=== PATIENT | female | born 1965 | race Caucasian/White ===

== ENCOUNTER 2020-10-08 20:03 | Emergency (ER) | payer BC ==
[2020-10-08] MEDS ORDERED: predniSONE 20 MG Tab PO ONE (20:21)
[2020-10-08] MEDS ORDERED: Famotidine 20 MG Tab PO ONE (20:22)
--- NOTE | 2020-10-08 20:27 | EDM.PDOC ---
ED HPI GENERAL MEDICAL PROBLEM - General Chief Complaint: Allergic Reaction Stated Complaint: ALLERGIC REACTION Time Seen by Provider: 10/08/20 20:05 Source of Information: Reports: Patient History Limitations: Reports: No Limitations - History of Present Illness INITIAL COMMENTS - FREE TEXT/NARRATIVE: The patient presents with an allergic reaction. The patient just ate some s hrimp and about an hour later had tingling in her mouth, tongue, and lips and hives to her face. She did take benadryl and that did help. She is not allergic to any foods as far as she knows. She has some allergies to medications. She has no trouble breathing. Onset: Sudden Duration: Hour(s): Location: Reports: Face Severity: Moderate Improves with: Reports: None Worsens with: Reports: None Associated Symptoms: Reports: No Other Symptoms - Related Data Allergies Allergy/AdvReac Type Severity Reaction Status Date / Time ephedrine [From Tedral] Allergy Rash Verified 10/08/20 20:13 phenobarbital [From Tedral] Allergy Rash Verified 10/08/20 20:13 theophylline [From Tedral] Allergy Rash Verified 10/08/20 20:13 Home Meds: Home Meds Albuterol [Ventolin 2 MG/5 ML] 10/08/20 [History] Montelukast [Singulair] 10 mg PO DAILY 10/08/20 [History] predniSONE [Prednisone] 40 mg PO DAILY #10 tablet 10/08/20 [Rx] Past Medical History Respiratory History: Reports: Asthma ED ROS ALLERGIC REACTION - Review of Systems Review Of Systems: See Below Constitutional: Reports: No Symptoms HEENT: Reports: Other (mouth and lip tingling) Respiratory: Reports: No Symptoms Cardiovascular: Reports: No Symptoms Endocrine: Reports: No Symptoms GI/Abdominal: Reports: No Symptoms : Reports: No Symptoms ED EXAM GENERAL NO PERIP PULSE - Physical Exam Exam: See Below Exam Limited By: No Limitations General Appearance: Alert, No Apparent Distress Ears: Normal External Exam Nose: Normal Inspection Throat/Mouth: Normal Inspection Head: Atraumatic, Normocephalic Neck: Normal Inspection Respiratory/Chest: No Respiratory Distress, Lungs Clear, Normal Breath Sounds Cardiovascular: Regular Rate, Rhythm, No Edema, No Murmur GI/Abdominal: Soft, Non-Tender, No Organomegaly, No Mass Back Exam: Normal Inspection Extremities: Normal Inspection Course - Vital Signs Last Recorded V/S: Last Vital Signs Temp 98.1 F 10/08/20 20:10 Pulse 98 10/08/20 20:10 Resp 18 10/08/20 20:10 BP 119/64 10/08/20 20:10 Pulse Ox 99 10/08/20 20:10 - Orders/Labs/Meds Orders: Active Orders 24 hr Category Date Time Status Famotidine [Pepcid] Med 10/08/20 20:22 Once 20 mg PO ONETIME ONE predniSONE Med 10/08/20 20:21 Once 40 mg PO ONETIME ONE - Re-Assessments/Exams Free Text/Narrative Re-Assessment/Exam: 10/08/20 20:25 She looks good now but it sounds like she did react to the shrimp. I will give her a dose of prednisone here and pepcid and a prescription for more prednisone. Departure - Departure Time of Disposition: 20:30 Disposition: Home, Self-Care 01 Condition: Good Clinical Impression: Shrimp allergy Allergic reaction Qualifiers: Encounter type: initial encounter Qualified Code(s): T78.40XA - Allergy, unspecified, initial encounter - Discharge Information *PRESCRIPTION DRUG MONITORING PROGRAM REVIEWED*: Not Applicable *COPY OF PRESCRIPTION DRUG MONITORING REPORT IN PATIENT [place]: Not Applicable Prescriptions: predniSONE [Prednisone] 40 mg PO DAILY #10 tablet Referrals: PCP,Not In Area [Primary Care Provider] - Additional Instructions: It appears you reacted to the shrimp you ate tonight. Try to avoid shrimp and other shell fish. Take the prednisone daily for 5 days. Take pepcid daily for 5 days. Take benadryl 50mg every 6 hours as needed for allergy symptoms. Follow up with your doctor for possible allergy testing. Sepsis Event Note (ED) - Evaluation Sepsis Screening Result: No Definite Risk - Focused Exam Vital Signs: Vital Signs Temp Pulse Resp BP Pulse Ox 10/08/20 20:10 98.1 F 98 18 119/64 99 - My Orders Last 24 Hours: My Active Orders 10/08/20 20:21 predniSONE 40 mg PO ONETIME ONE 10/08/20 20:22 Famotidine [Pepcid] 20 mg PO ONETIME ONE - Assessment/Plan Last 24 Hours: My Active Orders 10/08/20 20:21 predniSONE 40 mg PO ONETIME ONE 10/08/20 20:22 Famotidine [Pepcid] 20 mg PO ONETIME ONE
== END 2020-10-08 20:38 | disposition home or self-care (01) ==
LOC: JD.ED 20:03
DX: T78.1XXA Other adverse food reactions, not elsewhere classified, initial encounter (principal); J45.909 Unspecified asthma, uncomplicated; Z79.899 Other long term (current) drug therapy; Z88.8 Allergy status to other drugs, medicaments and biological substances
CPT/HCPCS: 99283; A9270; J7512